=== PATIENT | male | born 1955 | race Hispanic/Latino ===

== ENCOUNTER 2019-01-04 11:37 | Emergency (ER) | payer OTHER ==
[~2019-01-04] VITALS: Ht 175.3 cm; Wt 104.3 kg
[2019-01-04 12:00] VITALS: BP 161/84
[2019-01-04] MEDS ORDERED: DILAUDID IV STA (12:15)
[2019-01-04] MEDS ORDERED: ZOFRAN IV STA (12:15)
[2019-01-04] MEDS ORDERED: ZOFRAN ONE (12:20)
[2019-01-04] MEDS ORDERED: DILAUDID ONE (12:21)
--- NOTE | 2019-01-04 12:46 | DIREP ---
PROCEDURE:XRAY ANKLE MIN 3VWS-RT COMPARISON:None. INDICATIONS:pain S/P fall FINDINGS: BONES:Oblique fracture of the distal fibula, approximately 2.5-5 cm from the talar dome. This is mildly displaced. JOINTS:There is widening of the ankle mortise SOFT TISSUES:Normal. OTHER:No additional findings. CONCLUSION:Oblique fracture of the distal fibula, with mild widening of the ankle mortise Dictated by: Gerald Mcpherson MD on 01/04/2019 at 12:42 PM
--- NOTE | 2019-01-04 13:12 | ER.PDOC ---
General Chief Complaint: Extremities Stated Complaint: FALL Time seen by MD: 12:00 Source: patient Exam Limitations: no limitations History of Present Illness Initial Comments Right ankle pain and swelling S/P fall. He did not hit his head. Onset: just prior to arrival Where: work Severity: moderate Context: fall Modifying Factors: pain on movement Allergies: Coded Allergies: No Known Allergies (Unverified , 01/04/19) Past Medical History Medical History: GERD, hypertension Surgical History: no surgical history Social History Smoking: non-smoker Alcohol Use: none Drug Use: none Review of Systems Constitutional: no symptoms reported EENTM: no symptoms reported Respiratory: no symptoms reported Cardiovascular: no symptoms reported Gastrointestinal: no symptoms reported Musculoskeletal: see HPI All Other Systems: Reviewed and Negative Physical Exam General Appearance: Alert, No Apparent Distress Foot: nml inspection, non-tender Ankle: tenderness (right ankle), swelling, limited ROM by pain Gait: unable to bear weight Neuro: sensation nml, motor nml Vascular: no vascular compromise Tendons: tendon function nml Leg/Knee/Thigh: uninjured above ankle Head/ENT: nml inspection, pharynx nml Neck/Back: nml inspection, non-tender Resp/CVS: no resp distress Abdomen: non-tender, no organomegaly Results/Orders Results/Orders Orders - JIM RIOS MD Xr Ankle 3v Rt (01/04/19 12:15) Hydromorphone Inj (Dilaudid) (01/04/19 12:15) Ondansetron Hcl (Zofran) (01/04/19 12:15) Vital Signs Date Time Temp Pulse Resp B/P (MAP) Pulse Ox O2 Delivery O2 Flow Rate FiO2 01/04/19 12:00 97.9 75 22 161/84 (109) 99 Room Air 97.9 01/04/19 11:51 97.9 75 22 97.9 01/04/19 11:51 97.6 75 22 99 Room Air 97.6 Administered Medications Medications (Trade) Dose Ordered Sig/Ike Route PRN Reason Start Time Stop Time Status Last Admin Dose Admin Hydromorphone HCl (Dilaudid) 2 mg STAT STAT IV 01/04/19 12:15 01/04/19 12:17 DC 01/04/19 12:33 2 MG Ondansetron HCl (Zofran) 4 mg STAT STAT IV 01/04/19 12:15 01/04/19 12:17 DC 01/04/19 12:33 4 MG Progress Progress X rays right ankle: Oblique fracture of the distal fibula, with mild widening of the ankle mortise Spoke to Dr. Young and he wants patient come to his office on 01/07/19 at 1pm Departure Time of Disposition: 13:10 Disposition: 01 HOME, SELF-CARE Impression: Primary Impression: Closed fibular fracture Additional Impression: Right ankle injury Condition: Stable Referrals: PCP,UNKNOWN (PCP) PRIMARY CARE PROVIDER Additional Instructions: Ice Tylenol #3 Ibuprofen F/U with Dr. Young on 01/07/19 at 1pm Duration or Time Spent with Pa: 45 mins Problem Qualifiers Primary Impression: Closed fibular fracture Encounter type: initial encounter Fibula location: distal Fracture morphology: unspecified fracture morphology Laterality: right Qualified Codes: S82.831A - Other fracture of upper and lower end of right fibula, initial encounter for closed fracture Additional Impression: Right ankle injury Encounter type: initial encounter Qualified Codes: S99.911A - Unspecified injury of right ankle, initial encounter JIM RIOS MD Jan 04, 2019 13:12
[2019-01-04 13:25] VITALS: BP 134/84
== END 2019-01-04 13:40 | disposition home or self-care (01) ==
LOC: ER 11:37
DX: S82.831A Other fracture of upper and lower end of right fibula, initial encounter for closed fracture (principal); I10 Essential (primary) hypertension; K21.9 Gastro-esophageal reflux disease without esophagitis; Z79.899 Other long term (current) drug therapy; W19.XXXA Unspecified fall, initial encounter; Y93.89 Activity, other specified; Y92.69 Other specified industrial and construction area as the place of occurrence of the external cause; Y99.0 Civilian activity done for income or pay
CPT/HCPCS: 73610; 96374; 96375; 99284; J1170; J2405